=== PATIENT | male | born 1980 | race Caucasian/White ===

== ENCOUNTER → 2024-08-07 | Outpatient (CLI) | payer BC ==
--- NOTE | 2024-08-07 08:55 | MR ---
EXAMINATION TYPE: MR humerus LT wo/w con DATE OF EXAM: 08/07/2024 8:15 AM COMPARISON: None CLINICAL INDICATION: Male, 44 years old with history of S46.212A,M796.22, Lt humerus, anterior lump a iglesia elbow joint TECHNIQUE: Multiplanar multi-sequence imaging was performed. IV Contrast: 7 cc Gadobutrol FINDINGS: Palpable marker correlates with the biceps brachii myotendinous junction which is retracted heterogen ous and edematous in appearance. There is a 4.6 cm of retraction from the radial tuberosity. Fibers e xtending from this area edematous myotendinous junction are poorly visualized extending to the radial tuberosity suggesting high-grade tear versus complete tear. Soft tissues: The remainder of the musculature appears to be within normal limits. The signal intens ity is unremarkable. Rotator cuff appears grossly intact. Osseous structures: The bone marrow signal intensity of the humerus is within normal limits. Osteoar thritic changes are noted. The acromion is a type II. IMPRESSION: The palpable marker correlates with the myotendinous junction of the biceps brachii muscl e which is balled up and retracted from its insertion onto the radial tuberosity. Correlate with phys ical exam for full-thickness tear, there is at least a high-grade tear of the biceps tendon. [facility], , 08/07/2024 8:53 AM
== END | disposition home or self-care (01) ==
LOC: RADMRIMAIN 07:12
PROVIDERS: ATTEND Family Medicine
DX: S46.212A Strain of muscle, fascia and tendon of other parts of biceps, left arm, initial encounter (principal); X58.XXXA Exposure to other specified factors, initial encounter
CPT/HCPCS: 73220; A9585